=== PATIENT | male | born 1990 | race Caucasian/White ===

== ENCOUNTER 2019-09-22 19:36 | Emergency (ER) | payer BC ==
[~2019-09-22] VITALS: Ht 177.8 cm; Wt 115.7 kg
[2019-09-22 19:50] VITALS: BP 142/84
--- NOTE | 2019-09-22 19:50 | NUR ---
TO BED # 09 AMBULATORY
[2019-09-22 19:57] VITALS: BP 142/84
--- NOTE | 2019-09-22 19:57 | NUR ---
PT ASSESSMENT COMPLETE. PT SEATED UPRIGHT IN BEDSIDE CHAIR. WILL CONTINUE TO MONITOR.
[2019-09-22] MEDS: DEXAMETHASONE 10 MG/ML VIAL IM ONE (20:43)
--- NOTE | 2019-09-22 21:02 | NUR ---
Patient discharged with v/s stable. Written and verbal after care instructions given and explained. Patient alert, oriented and verbalized understanding of instructions. Ambulatory with steady gait. All questions addressed prior to discharge. ID band removed. Patient advised to follow up with PMD. Rx of PREDNISONE,ALBUTEROL, AND IBUPROFEN given. Patient educated on indication of medication including possible reaction and side effects. Opportunity to ask questions provided and answered.
== END 2019-09-22 21:02 | disposition home or self-care (01) ==
LOC: MED 19:36
DX: J20.9 Acute bronchitis, unspecified (principal); B34.9 Viral infection, unspecified; R19.7 Diarrhea, unspecified
CPT/HCPCS: 96372; 99283; J1100